=== PATIENT | female | born 1960 | race Caucasian/White ===

== ENCOUNTER → 2017-01-25 09:11 | Outpatient (CLI) | payer BC ==
[2015-12-26 15:53] VITALS: BMI 27.4
[~2017-01-25 09:11] MED LIST: ABILIFY10 MG PO; ADVAIR HFA 230-12 GM INH; AMBIEN10 MG PO; CLONAZEPAM2 MG/TAB PO; FERREX 150 PLUS1 CAP PO; HYDROCODON-ACE1 EAC7 PO; KLONOPIN1 MG PO; LEVAQUIN250 MG PO; LIPITOR20 MG PO; LITHIUM CARBON300 MG PO; MUCINEX DM ER1 EAC1 PO; NICODERM C1 PATCH .3 TRANSDERM; NORVASC2.5 MG PO; PROCRIT/EP4000 UNITS SC; PROVENTIL/2.5 MG/3 M INH; PROZAC20 MG PO; PROZAC40 MG PO; SYMBICORT 16010.2 GM INH; SYMBICORT 80-10.2 GM INH; SYNTHROID25 MCG PO; SYNTHROID75 MCG PO; TOPROL XL25 MG PO; VENTOLIN HFA18 GM INH; VITAMIN D31000 UNI2 PO
== END | disposition home or self-care (01) ==
LOC: D.RT 09:11
DX: J44.9 Chronic obstructive pulmonary disease, unspecified (principal)

== ENCOUNTER → 2017-07-27 09:44 | Outpatient (CLI) | payer BC ==
[2015-12-26 15:53] VITALS: BMI 27.4
== END | disposition home or self-care (01) ==
LOC: D.MAMMO 09:44
DX: Z12.31 Encounter for screening mammogram for malignant neoplasm of breast (principal)

== ENCOUNTER → 2017-08-29 14:55 | Outpatient (CLI) | payer BC ==
[2015-12-26 15:53] VITALS: BMI 27.4
== END | disposition home or self-care (01) ==
LOC: D.MAMMO 10:00
DX: R92.8 Other abnormal and inconclusive findings on diagnostic imaging of breast (principal)

== ENCOUNTER 2017-12-30 08:41 | Day surgery (SDC) | payer OTHER ==
[~2017-12-30] VITALS: Ht 154.9 cm; Wt 57.7 kg
--- NOTE | ~2017-12-30 | OP ---
PATIENT NAME: JAIR ECHOLS MEDICAL RECORD: [id number] :60 LOCATION:D.OPS ADMISSION DATE: SURGEON: LULU ROJO MD DATE OF OPERATION: 12/30/2017 SURGEON: Lulu Rojo MD REFERRING PHYSICIAN: Dr. London. PRIMARY CARE PHYSICIAN: Griselda Zhang MD OPERATION PERFORMED: Creation of a right brachiocephalic Maximo type AV fistula. ANESTHESIA: General per LMA as well as regional nerve block per SENIOR COMMUNICATIONS ENGINEER. PREOPERATIVE NOTE: This 57-year-old white female patient with chronic kidney disease was referred for dialysis access surgery. She is brought to the operating room at this time as an outpatient to create a fistula in her right arm. DESCRIPTION OF PROCEDURE: Under general anesthesia as well as regional nerve block, the patient was prepped and draped in a sterile manner. I used a Conception drain for a proximal venous tourniquet and applied nitroglycerin into the intact skin of the arm and forearm. I did a duplex ultrasound exam at that point and noted that she had a suitable basilic vein and also suitable median cubital and cephalic vein for fistulas. I elected to go ahead with the brachiocephalic fistula. I made a transverse antecubital incision. I exposed and mobilized the median cubital vein and ligated it distally and transected and beveled it and prepared for anastomosis. It was flushed with heparinized saline and distended with heparinized saline hydrostatically and treated with topical papaverine. The brachial artery was exposed and controlled with doubly looped Silastic tapes. The artery was occluded and opened, it was then flushed proximally and distally with heparinized saline as had been the vein and the vein was then anastomosed end to vein to side artery with running 7-0 Prolene and when completed, the suture line was hemostatic and excellent flow developed immediately in the fistula upon release of the occluding loops. There was preservation of good high resistance type pulsatile Doppler flow signal in the radial artery at the wrist as well as the brachial artery distal to the anastomosis with pulsatile continuous flow in the fistula. The wound was closed with interrupted inverted 3-0 Vicryl and then running intracuticular 4-0 Monocryl and Dermabond glue. It was dressed with Maxorb Ag, Tegaderm, and Cavilon skin prep and the patient awakened from her anesthetic and was taken to the recovery room. Blood loss was about 5 cc, perhaps at most. None was replaced. All sponges, instruments, and needles were accounted for. No drain was used. The patient will be allowed to go home this afternoon and follow up with me in my office next week. She will continue all of her same home medications and she may shower and wash over the waterproof plastic dressing as desired. If it stays dry and intact, she should leave it in place until she sees me in the office and I will remove it then. TRANSINT:[id number] Voice Confirmation ID: [id number] DOCUMENT ID: [id number] OPERATIVE REPORT [id number] JAIR ECHOLS JAMES MD at 1404 CC: MORRIS LONDON MD [id number] DICTATION DATE: 12/30/17 1431 ENERGY PROFESSIONAL: 12/30/17 1451 [facility] 12/30/[address] [address]
[2017-12-30 09:50] VITALS: BP 139/73; Ht 154.9 cm; Wt 57.7 kg
[2017-12-30 10:49] LABS: BASOPHILS 0.5 % (0-2); HEMATOCRIT 33.1 % (36.0-48.0); HEMOGLOBIN 10.9 g/dL (12-16); IMMATURE GRANULOCYTES 0.2 % (0-5); LYMPHOCYTES 18.4 % (15-50); MCH 30.4 pg (26.0-34.0); MCHC 32.9 g/dL (31.0-37.0); MCV 92.2 fL (80.0-100.0); MEAN PLATELET VOLUME 9.4 fL (7.4-10.4); MONOCYTES 6.6 % (2-11); NEUTROPHILS 70.3 % (40-80); RBC 3.59 10x6/uL (4.00-5.40); RDW 14.4 % (11.5-14.5); WBC 9.7 10x3/uL (4.8-10.8)
[2017-12-30 11:07] LABS: PLATELET COUNT 339 10x3/uL (130-400)
[2017-12-30 11:08] LABS: ANION GAP 15.3 mmol/L (8-16); CALCIUM 8.9 mg/dL (8.5-10.1); CARBON DIOXIDE 22.8 mmol/L (21.0-32.0); CREATININE - SERUM 4.5 mg/dL (0.6-1.3); POTASSIUM - SERUM 5.1 mmol/L (3.5-5.1)
[2017-12-30 11:11] LABS: INR 1.09 (0.85-1.17); PROTIME 13.7 SECONDS (11.6-15.0)
[2017-12-30] MEDS ORDERED: HYDROCODON-ACE1 EAC7 PO (14:23)
== END 2017-12-30 16:15 | disposition home or self-care (01) ==
LOC: D.OPS 08:41
PROVIDERS: Surgery
DX: I12.0 Hypertensive chronic kidney disease with stage 5 chronic kidney disease or end stage renal disease (principal); N18.5 Chronic kidney disease, stage 5; Z99.2 Dependence on renal dialysis; E03.9 Hypothyroidism, unspecified; J45.909 Unspecified asthma, uncomplicated; F17.200 Nicotine dependence, unspecified, uncomplicated; J44.9 Chronic obstructive pulmonary disease, unspecified; K21.9 Gastro-esophageal reflux disease without esophagitis; M19.90 Unspecified osteoarthritis, unspecified site; Z01.812 Encounter for preprocedural laboratory examination

== ENCOUNTER → 2018-01-13 07:15 | Outpatient (CLI) | payer OTHER ==
[2017-12-30 09:50] VITALS: BMI 24.0
== END | disposition home or self-care (01) ==
LOC: D.RT 07:15
DX: J45.901 Unspecified asthma with (acute) exacerbation (principal)

== ENCOUNTER → 2018-06-16 09:27 | Outpatient (CLI) | payer OTHER ==
[2017-12-30 09:50] VITALS: BMI 24.0
== END | disposition home or self-care (01) ==
LOC: D.RT 09:27
DX: J45.909 Unspecified asthma, uncomplicated (principal)

== ENCOUNTER → 2018-07-19 19:08 | Outpatient (CLI) | payer OTHER ==
[2017-12-30 09:50] VITALS: BMI 24.0
== END | disposition home or self-care (01) ==
LOC: D.MAMMO 10:15
DX: Z12.31 Encounter for screening mammogram for malignant neoplasm of breast (principal)

== ENCOUNTER 2018-11-26 07:47 | Inpatient (IN) | payer OTHER ==
[~2018-11-26] VITALS: Ht 154.9 cm; Wt 45.5 kg
[2018-11-26] VITALS (11 sets, daily range): BP systolic 108–131; BP diastolic 60–76; BMI 19.8
--- NOTE | ~2018-11-26 | HEMODYNAMI ---
PATIENT:JAIR ECHOLS MEDICAL RECORD: [id number] : 60 LOCATION:[facility] D.2128 ADMISSION DATE: 11/26/18 Generatedon:12/01/20189:36 Patient name: JAIR ECHOLS Patient #: [id number] SSN: : 1960 Date of study: 12/01/2018 Page: Of Hemodynamic Procedure Report Patient Data Patient Demographics Procedure consent was obtained First Name: JAIR Gender: Female Last Name: ONESIMO : 1960 [facility] Initial: JEFF Age: 58 year(s) Patient #: [id number] Race: Unknown Additional ID: [id number] Contact details Address: [address] [place] [address] State: [place] City: [facility] Zip code: [address] Past Medical History Allergies Allergen Reaction Date Comments Reported Erythromycin Other 12/01/2018 Admission Admission Data Admission Date: 11/26/2018 Admission Time: 9:21 Room #: 2128 Procedure Procedure Types Cath Procedure Peripheral Cath Diagnostic Procedure Nephro Procedure Description Procedure Date Procedure Date: 12/01/2018 Procedure Start Time: 8:50 Procedure End Time: 9:35 Procedure Staff Name Function Obinna Fernandez MD Performing Physician Marlin Walsh Monitor Gloria Fitch RN Nurse Jerrell Price RT Scrub Procedure Data Cath Procedure Fluoroscopy Diagnostic fluoroscopy Total fluoroscopy Time: 3.9 time: 3.9 min min Diagnostic fluoroscopy Total fluoroscopy dose: 53 dose: 53 mGy mGy Contrast Material Contrast Material Type Amount (ml) Isovue 300 25 Procedure Medications Medication Administration Route Dosage Heparin Flush Bag added to field 1 bags (1000units/500ml NS) Lidocaine 1% added to field 20 Versed I.V. 1 mg Fentanyl I.V. 50 mcg unlisted medication 1 Versed I.V. 1 mg Fentanyl I.V. 50 mcg Hemodynamics Rest Heart Rate: 67 (bpm) Snapshots Pre Cath Intra NCS Post Cath Vital Signs Time Heart Resp SPO2 etCO2 NIBP (mmHg) Rhythm Pain Sedation Rate (ipm) (%) (mmHg) Status Level (bpm) 8:35:45 65 5 99 33.8 140/78(122) NSR 0 (11) 10(A) , No pain 8:39:55 71 34 100 27 139/79(122) NSR 0 (11) 10(A) , No pain 8:44:05 66 18 100 35.3 133/76(117) NSR 0 (11) 10(A) , No pain 8:48:13 68 24 99 30.8 139/79(114) NSR 0 (11) 9(A) , No pain 8:52:21 63 25 99 30.8 147/81(116) NSR 0 (11) 8(A) , No pain 8:56:35 65 14 99 41.4 136/76(96) NSR 0 (11) 8(A) , No pain 9:00:44 65 24 99 33.8 131/75(111) NSR 0 (11) 8(A) , No pain 9:04:52 66 19 99 36.1 135/78(108) NSR 0 (11) 8(A) , No pain 9:09:02 67 12 99 36.9 133/74(106) NSR 0 (11) 8(A) , No pain 9:13:10 67 10 99 33.8 128/75(107) NSR 0 (11) 8(A) , No pain 9:17:18 68 14 99 30.8 136/73(101) NSR 0 (11) 8(A) , No pain 9:21:26 65 20 99 36.1 136/77(109) NSR 0 (11) 8(A) , No pain 9:25:36 66 21 99 36 126/75(106) NSR 0 (11) 8(A) , No pain 9:29:43 68 16 99 34.5 131/73(109) NSR 0 (11) 8(A) , No pain 9:33:51 69 16 99 30.8 130/76(109) NSR 0 (11) 8(A) , No pain Medications Time Medication Route Dose Verified Delivered Reason Notes Effec tiveness by by 8:47:03 Heparin Flush added 1 Obinna Yeboah used for Bag to bags Fernandez Fernandez procedure (1000units/500ml field MD FOX NS) 8:47:13 Lidocaine 1% added 20ml Obinna de la fuente local to vial Fernandez Fernandez anesthetic field MD FOX 8:48:06 CEFEPIME IVPB 1GM Obinna Castro Per Jim Fitch RN physician 8:50:37 Versed I.V. 1 mg Obinna Castro for Fernandez Constantine RN sedation 8:50:46 Fentanyl I.V. 50 Obinna Castro for mcg Fernandezsebastian Fitch RN sedation 8:59:52 Versed I.V. 1 mg Obinna Castro for Fernandez Constantine RN sedation 9:00:02 Fentanyl I.V. 50 Obinna Castro for mcg Fernandezsebastian Fitch RN sedation Procedure Log Time Note 8:20:19 Gloria Fitch RN sent for patient. Start room use. 8:20:26 Time tracking: Regular hours (M-F 7:00 - 5:00) 8:20:37 Plan of Care:Hemodynamics will remain stable., Cardiac rhythm will remain stable., Comfort level will be maintained., Respiratory function will remain adequate., Patient/ family verbilizes understanding of procedure., Procedure tolerated without complication., Recovers from procedure without complications.. 8:20:56 Patient received from Med II to IR Alert and oriented. Tansferred to table in Prone position. 8:20:58 Warm blankets applied on for patient comfort. 8:21:28 Correct patient and procedure confirmed by team. 8:21:32 Signed procedure consent form obtained from patient. 8:21:36 ECG and BP/O2 sat monitors applied to patient. 8:21:43 Full Disclosure recording started 8:21:45 8:22:12 H&P Date Dictated: 12/01/2018 Within 30 days and on chart.. 8:22:16 Pre-procedure instructions explained to patient. 8:22:21 Pre-op teaching completed and patient verbalized understanding. 8:22:28 Family in waiting room. 8:22:32 Patient NPO since Midnight. 8:23:02 Patient allergic to Erythromycin 8:24:26 ----Pre-sedation anethsthesia assessment.---- 8:24:31 Previous problem with sedation/anesthesia? No ? 8:24:35 Snore? Yes 8:24:38 Sleep apnea? No 8:24:42 Deviated septum? No 8:24:45 Opens mouth fully? Yes 8:24:48 Sticks out tongue? Yes 8:25:00 Dentures? Yes in tight. 8:26:13 IV started by Gloria Fitch RN inleft forearm with a 22 gauge IV catheter with 0.9% NaCl at KVO. 8:26:36 Alarms reviewed . 8:26:37 Sharps counted by scrub and verified . 8:27:28 Use device set IR Diagnostic 8:27:34 Tegaderm 4 x 4 (1626W) opened to sterile field. 8:27:35 Sterile Angiographic Pack opened to sterile field. 8:27:36 Bag Decanter (2002S) opened to sterile field. 8:28:33 Right Lumbar was prepped with chlora-prep and draped in sterile fashion. 8:29:48 KIT, INTRODUCER ACCUSTICK II W/C ([id number]) opened to sterile field. 8:29:[address] ST[address] 3-Way Large Bore ([id number]) opened to sterile field. 8:34:35 Vital chart was started 8:34:54 Baseline sample Acquired. 8:46:12 BAG, DRAINAGE EMPTY 600ML W/SHARIF ([id number]) opened to sterile field. 8:47:03 Heparin Flush Bag (1000units/500ml NS) 1 bags added to field was administered by Obinna Fernandez MD; used for procedure; 8:47:13 Lidocaine 1% 20ml vial added to field was administered by Obinna Fernandez MD; for local anesthetic; 8:47:27 Physician arrived 8:47:29 --------ALL STOP TIME OUT------ 8:47:31 Final Timeout: patient, procedure, and site verified with staff and physician. All members of the team are in agreement. 8:47:43 Right abdomen site verified by team. 8:47:56 Sedation plan: IV Moderate Sedation Medication:Versed, Fentanyl, Lidocaine 8:48:06 CEFEPIME 1GM IVPB was administered by Gloria Fitch RN; Per physician; 8:48:21 Procedure started. 8:50:23 Local anesthetic to Abdominal area with Lidocaine 1% by Obinna Fernandez MD.INITIAL ACCESS ONLY 8:50:37 Versed 1 mg I.V. was administered by Gloria Fitch RN; for sedation; 8:50:46 Fentanyl 50 mcg I.V. was administered by Gloria Fitch RN; for sedation; 8:51:08 1mg cephine given by Gloria Fitch RN. 8:59:52 Versed 1 mg I.V. was administered by Gloria Fitch RN; for sedation; 9:00:02 Fentanyl 50 mcg I.V. was administered by Gloria Fitch RN; for sedation; 9:08:07 Access obtained with the accustick system. 9:10:06 ROADRUNNER .035 145 glide wire (D16337) opened to sterile field. 9:14:50 GLIDE CATHETER 4FR Straight 65cm (CG412) opened to sterile field. 9:14:51 AMPLATZ Super stiff 180cm wire ([id number]) opened to sterile field. 9:17:56 The roadrunner wire is used to wire the right ureter into the bladder. 9:18:37 The 4 fr guide cath is used to manuver into the bladder. 9:19:14 PEEL-A-WAY INTRODUCER 11Fr opened to sterile field. 9:19:41 DILATOR, VESSEL 8/20 opened to sterile field. 9:21:12 [place] Sci All Purpose 10Fr drainage catheter ([id number]) opened to sterile field. 9:22:19 the all purpose 10 Fr drainage catheter is positioned in the right kidney. 9:22:48 Procedure ended.(Physican Out) 9:26:18 Fluoroscopy time 03.90 minutes. 9:26:33 Flurop Dose total: 53 9:26:33 Fluoroscopy dose: 53 mGy 9:26:40 Contrast amount:Isovue 300 25ml. 9:26:43 Sharps counted by scrub and verified . 9:29:57 Post-op/insertion site Right Lumbar area dressed using a 4 x 4 and Tegaderm. 9:30:03 Post procedure instruction explained to patient.Patient verbalizes understanding. 9:30:05 Patient needs reinforcement of post procedure teaching. 9:30:13 Procedure and supply charges have been captured, reviewed, submitted and are correct. 9:35:20 See physician's report for complete and final results. 9:35:25 Report given to [facility]. 9:35:33 Patient transfered to [facility] with Bed. 9:35:39 Procedure ended. 9:35:39 Full Disclosure recording stopped 9:36:14 Vital chart was stopped Device Usage Item Name Manufacture Quantity Catalog Hospital Part Current Minimal Lot# / Number Charge Number Stock Stock Serial# Code Tegaderm 4 x 3M 1 1626W [id number] [id number] 5 4 (1626W) Sterile Cardinal 1 [id number] 422214 544064 5 Angiographic Health Pack Bag Decanter Microtek 1 2001S 534514 38356 303265 5 (2001S) Medical Inc[employer] KIT, [place] 1 [id number] 672231 364675 433855 5 [id number] INTRODUCER Scientific ACCUSTICK II W/C ([id number]) STOPCOCK [employer] [place] [employer] 1 X09211 805277 4429 739634 [id number] 3-Way Large Bore (Q81457) BAG, Merit 1 GMD554 076867 294411 835637 5 DRAINAGE Medical EMPTY 600ML W/SHARIF (SJN131) ROADRUNNER [place] [facility] 1 R88706 481109 547295 095494 5 [id number] .035 145 glide wire (J83374) GLIDE Terumo 1 CG412 257856 472879 5 CATHETER 4FR Straight 65cm (CG412) AMPLATZ [place] 1 [id number] 650477 894372 781139 5 [id number] Super stiff Scientific 180cm wire ([id number]) PEEL-A-WAY [employer] 1 F45690 150310 087294 362895 5 [id number] INTRODUCER 11Fr DILATOR, [employer] 1 C32708 570856 80955 624153 5 VESSEL 8/20 [place] [employer] [place] 1 [id number] 242642 027310 193134 5 All Purpose Scientific 10Fr drainage catheter ([id number]) Signature Audit [place] Stage Time Signature Unsigned Intra-Procedure 12/01/2018 Marlin 9:36:11 AM Nico Signatures Monitor : Marlin Signature : Nico Date : Time : [address] [place] [address]
[2018-11-26 08:20] LABS: BASOPHILS 0.1 % (0-2); EOSINOPHILS 1.5 % (0-7); HEMATOCRIT 29.7 % (36.0-48.0); HEMOGLOBIN 10.1 g/dL (12-16); IMMATURE GRANULOCYTES 0.2 % (0-5); LYMPHOCYTES 3.5 % (15-50); MCH 31.3 pg (26.0-34.0); MEAN PLATELET VOLUME 9.9 fL (7.4-10.4); MONOCYTES 8.3 % (2-11); NEUTROPHILS 86.4 % (40-80); RBC 3.23 10x6/uL (4.00-5.40); RDW 13.3 % (11.5-14.5); WBC 15.5 10x3/uL (4.8-10.8)
[2018-11-26 08:29] LABS: PLATELET COUNT 184 10x3/uL (130-400)
[2018-11-26 08:43] LABS: ALBUMIN 2.9 g/dL (3.4-5.0); ANION GAP 16.8 mmol/L (8-16); BILIRUBIN - TOTAL 0.3 mg/dL (0.2-1.3); CALCIUM 8.1 mg/dL (8.5-10.1); CARBON DIOXIDE 20.1 mmol/L (21.0-32.0); CREATININE - SERUM 5.4 mg/dL (0.6-1.3); POTASSIUM - SERUM 3.9 mmol/L (3.5-5.1); PROTEIN - SERUM 6.3 g/dL (6.4-8.2)
[2018-11-26 08:49] LABS: THYROID STIMULATING HORMONE 1.55 uIU/mL (0.36-3.74)
[2018-11-26 08:51] LABS: APPEARANCE CLEAR (CLEAR); BILIRUBIN NEGATIVE (NEGATIVE); COLOR YELLOW (YELLOW); GLUCOSE NEGATIVE (NEGATIVE); KETONE NEGATIVE (NEGATIVE); NITRITE NEGATIVE (NEGATIVE); PROTEIN NEGATIVE (NEGATIVE); SPECIFIC GRAVITY 1.005 (1.005-1.020); UROBILINOGEN NORMAL (NORMAL)
[2018-11-26 08:52] LABS: WHITE CELLS - URINE 0-5 /hpf (0-5)
[2018-11-26 08:53] LABS: EPITHELIAL CELLS 0-5 /hpf (0-5); RED CELLS - URINE 0-5 /hpf (0-5)
[2018-11-26 08:54] LABS: AMORPHOUS SEDIMENT <1+ /lpf (NONE SEEN); BACTERIA MANY /hpf (NONE SEEN); MUCUS <1+ /lpf (NONE SEEN)
[2018-11-26 12:01] LABS: UDS - AMPHET NEGATIVE QUAL (NEGATIVE); UDS - BARB NEGATIVE QUAL (NEGATIVE); UDS - BENZO NEGATIVE QUAL (NEGATIVE); UDS - COCAINE NEGATIVE QUAL (NEGATIVE); UDS - OPIATE NEGATIVE QUAL (NEGATIVE); UDS - PCP NEGATIVE QUAL (NEGATIVE); UDS - THC POSITIVE QUAL (NEGATIVE)
[2018-11-27] VITALS (7 sets, daily range): BP systolic 124–138; BP diastolic 64–77; BMI 19.6
[2018-11-27 06:28] LABS: BASOPHILS 0.2 % (0-2); EOSINOPHILS 1.7 % (0-7); HEMATOCRIT 29.3 % (36.0-48.0); HEMOGLOBIN 9.9 g/dL (12-16); IMMATURE GRANULOCYTES 0.2 % (0-5); LYMPHOCYTES 4.8 % (15-50); MCH 31.4 pg (26.0-34.0); MCHC 33.8 g/dL (31.0-37.0); MEAN PLATELET VOLUME 10.2 fL (7.4-10.4); NEUTROPHILS 85.1 % (40-80); PLATELET COUNT 190 10x3/uL (130-400); RBC 3.15 10x6/uL (4.00-5.40); RDW 13.3 % (11.5-14.5); WBC 12.6 10x3/uL (4.8-10.8)
[2018-11-27 06:51] LABS: ALBUMIN 2.4 g/dL (3.4-5.0); ANION GAP 11.8 mmol/L (8-16); BILIRUBIN - TOTAL 0.25 mg/dL (0.2-1.3); CALCIUM 7.7 mg/dL (8.5-10.1); CREATININE - SERUM 4.9 mg/dL (0.6-1.3); MAGNESIUM - SERUM 1.8 mg/dL (1.8-2.4); POTASSIUM - SERUM 3.6 mmol/L (3.5-5.1); PROTEIN - SERUM 5.7 g/dL (6.4-8.2)
[2018-11-27 06:54] LABS: CARBON DIOXIDE 26.8 mmol/L (21.0-32.0)
[2018-11-28 03:55] VITALS: BP 119/67
[2018-11-28 05:43] LABS: BASOPHILS 0.2 % (0-2); EOSINOPHILS 1.2 % (0-7); HEMATOCRIT 30.5 % (36.0-48.0); IMMATURE GRANULOCYTES 0.2 % (0-5); MCH 30.8 pg (26.0-34.0); MCHC 32.8 g/dL (31.0-37.0); MCV 93.8 fL (80.0-100.0); MEAN PLATELET VOLUME 10.3 fL (7.4-10.4); NEUTROPHILS 81.4 % (40-80); PLATELET COUNT 205 10x3/uL (130-400); RBC 3.25 10x6/uL (4.00-5.40); RDW 13.2 % (11.5-14.5); WBC 10.9 10x3/uL (4.8-10.8)
[2018-11-28 06:08] LABS: ALBUMIN 2.5 g/dL (3.4-5.0); ANION GAP 10.7 mmol/L (8-16); BILIRUBIN - TOTAL 0.33 mg/dL (0.2-1.3); CALCIUM 7.8 mg/dL (8.5-10.1); CARBON DIOXIDE 30.9 mmol/L (21.0-32.0); CREATININE - SERUM 4.7 mg/dL (0.6-1.3); MAGNESIUM - SERUM 1.7 mg/dL (1.8-2.4); POTASSIUM - SERUM 3.6 mmol/L (3.5-5.1); PROTEIN - SERUM 6.2 g/dL (6.4-8.2)
[2018-11-28 08:39] VITALS: BP 127/84
[2018-11-28 09:36] LABS: % SATURATION 8 % (15-55); IRON 13 ug/dl (35-150); TOTAL IRON BIND CAPACITY 147 ug/dl (260-445); UNSAT IRON BIND CAPACITY 134 ug/dl (150-375)
[2018-11-28 12:22] VITALS: BP 130/73
[2018-11-28 17:04] VITALS: BP 140/70
[2018-11-28 19:00] VITALS: BP 113/62
[2018-11-29] VITALS: BP 135/75
[2018-11-29 04:00] VITALS: BP 105/51
[2018-11-29 04:40] LABS: BASOPHILS 0.5 % (0-2); EOSINOPHILS 1.6 % (0-7); HEMOGLOBIN 8.5 g/dL (12-16); IMMATURE GRANULOCYTES 0.1 % (0-5); MCH 30.7 pg (26.0-34.0); MCHC 32.7 g/dL (31.0-37.0); MCV 93.9 fL (80.0-100.0); MEAN PLATELET VOLUME 10.2 fL (7.4-10.4); MONOCYTES 9.9 % (2-11); NEUTROPHILS 79.9 % (40-80); PLATELET COUNT 180 10x3/uL (130-400); RBC 2.77 10x6/uL (4.00-5.40); RDW 13.1 % (11.5-14.5); WBC 8.2 10x3/uL (4.8-10.8)
[2018-11-29 04:54] LABS: ANION GAP 16.8 mmol/L (8-16); BILIRUBIN - TOTAL 0.26 mg/dL (0.2-1.3); CARBON DIOXIDE 26.3 mmol/L (21.0-32.0); CREATININE - SERUM 4.1 mg/dL (0.6-1.3); MAGNESIUM - SERUM 2.3 mg/dL (1.8-2.4); POTASSIUM - SERUM 4.1 mmol/L (3.5-5.1); PROTEIN - SERUM 5.3 g/dL (6.4-8.2)
[2018-11-29 08:08] VITALS: BP 130/73
[2018-11-29 08:22] LABS: FOLATE (FOLIC ACID) - SERUM 4.1 ng/mL (>3.0)
[2018-11-29 11:08] VITALS: BP 116/73
[2018-11-29 15:37] VITALS: BP 138/76
[2018-11-29 21:09] VITALS: BP 152/88
[2018-11-30] VITALS: BP 143/76
[2018-11-30 04:00] VITALS: BP 153/88
[2018-11-30 05:31] LABS: BASOPHILS 0.2 % (0-2); EOSINOPHILS 2.4 % (0-7); HEMATOCRIT 27.3 % (36.0-48.0); IMMATURE GRANULOCYTES 0.3 % (0-5); MCH 30.7 pg (26.0-34.0); MCV 93.2 fL (80.0-100.0); MEAN PLATELET VOLUME 10.2 fL (7.4-10.4); MONOCYTES 8.8 % (2-11); NEUTROPHILS 82.3 % (40-80); RBC 2.93 10x6/uL (4.00-5.40); RDW 13.1 % (11.5-14.5)
[2018-11-30 05:34] LABS: PLATELET COUNT 246 10x3/uL (130-400); WBC 10.3 10x3/uL (4.8-10.8)
[2018-11-30 05:50] LABS: ALBUMIN 2.2 g/dL (3.4-5.0); ANION GAP 16.3 mmol/L (8-16); BILIRUBIN - TOTAL 0.23 mg/dL (0.2-1.3); CALCIUM 7.8 mg/dL (8.5-10.1); CARBON DIOXIDE 26.6 mmol/L (21.0-32.0); CREATININE - SERUM 4.4 mg/dL (0.6-1.3); MAGNESIUM - SERUM 2.1 mg/dL (1.8-2.4); POTASSIUM - SERUM 3.9 mmol/L (3.5-5.1); PROTEIN - SERUM 5.8 g/dL (6.4-8.2)
[2018-11-30 07:49] VITALS: BP 135/77
[2018-11-30 11:00] VITALS: BP 126/68
[2018-11-30 15:25] VITALS: Ht 154.9 cm; Wt 45.5 kg
[2018-11-30 17:02] VITALS: BP 134/70
[2018-11-30 20:00] VITALS: BP 134/74
[2018-12-01] VITALS (7 sets, daily range): BP systolic 111–151; BP diastolic 64–82
[2018-12-01 06:18] LABS: INR 1.24 (0.85-1.17); PROTIME 15.1 SECONDS (11.6-15.0)
[2018-12-01 06:19] LABS: APTT 43.1 SECONDS (22.8-39.4); BASOPHILS 0.5 % (0-2); EOSINOPHILS 4.3 % (0-7); HEMATOCRIT 28.2 % (36.0-48.0); HEMOGLOBIN 9.3 g/dL (12-16); IMMATURE GRANULOCYTES 0.3 % (0-5); LYMPHOCYTES 7.7 % (15-50); MCH 30.9 pg (26.0-34.0); MCV 93.7 fL (80.0-100.0); MEAN PLATELET VOLUME 10.1 fL (7.4-10.4); MONOCYTES 7.7 % (2-11); NEUTROPHILS 79.5 % (40-80); PLATELET COUNT 282 10x3/uL (130-400); RBC 3.01 10x6/uL (4.00-5.40); RDW 13.3 % (11.5-14.5); WBC 10.9 10x3/uL (4.8-10.8)
[2018-12-01 06:28] LABS: ALBUMIN 2.3 g/dL (3.4-5.0); ANION GAP 13.6 mmol/L (8-16); BILIRUBIN - TOTAL 0.25 mg/dL (0.2-1.3); CARBON DIOXIDE 26.6 mmol/L (21.0-32.0); CREATININE - SERUM 4.4 mg/dL (0.6-1.3); MAGNESIUM - SERUM 2.3 mg/dL (1.8-2.4); POTASSIUM - SERUM 4.2 mmol/L (3.5-5.1)
[2018-12-02 03:55] VITALS: BP 140/76
[2018-12-02 05:24] LABS: BASOPHILS 0.3 % (0-2); EOSINOPHILS 3.6 % (0-7); HEMATOCRIT 30.4 % (36.0-48.0); IMMATURE GRANULOCYTES 0.2 % (0-5); MCHC 32.9 g/dL (31.0-37.0); MCV 94.1 fL (80.0-100.0); MEAN PLATELET VOLUME 9.7 fL (7.4-10.4); MONOCYTES 8.7 % (2-11); NEUTROPHILS 79.2 % (40-80); PLATELET COUNT 293 10x3/uL (130-400); RBC 3.23 10x6/uL (4.00-5.40); RDW 13.1 % (11.5-14.5); WBC 10.1 10x3/uL (4.8-10.8)
[2018-12-02 05:44] LABS: ANION GAP 13.4 mmol/L (8-16); CALCIUM 8.6 mg/dL (8.5-10.1); CARBON DIOXIDE 28.1 mmol/L (21.0-32.0); CREATININE - SERUM 4.6 mg/dL (0.6-1.3); PHOSPHOROUS 3.7 mg/dL (2.5-4.9); POTASSIUM - SERUM 4.5 mmol/L (3.5-5.1)
[2018-12-02 10:41] VITALS: BP 139/80
[2018-12-02 14:29] VITALS: BP 135/82
[2018-12-02 17:11] VITALS: BP 118/67
[2018-12-02 20:30] VITALS: BP 138/81
[2018-12-03 04:30] VITALS: BP 121/72
[2018-12-03 06:58] LABS: BASOPHILS 0.2 % (0-2); EOSINOPHILS 3.1 % (0-7); HEMOGLOBIN 8.6 g/dL (12-16); IMMATURE GRANULOCYTES 0.4 % (0-5); LYMPHOCYTES 10.4 % (15-50); MCH 31.2 pg (26.0-34.0); MCHC 33.1 g/dL (31.0-37.0); MCV 94.2 fL (80.0-100.0); MEAN PLATELET VOLUME 9.6 fL (7.4-10.4); MONOCYTES 6.2 % (2-11); NEUTROPHILS 79.7 % (40-80); PLATELET COUNT 281 10x3/uL (130-400); RBC 2.76 10x6/uL (4.00-5.40); RDW 13.1 % (11.5-14.5); WBC 8.4 10x3/uL (4.8-10.8)
[2018-12-03 07:00] LABS: ANION GAP 15.1 mmol/L (8-16); CARBON DIOXIDE 24.5 mmol/L (21.0-32.0); CREATININE - SERUM 4.3 mg/dL (0.6-1.3); PHOSPHOROUS 3.4 mg/dL (2.5-4.9)
[2018-12-03 07:03] LABS: POTASSIUM - SERUM 3.6 mmol/L (3.5-5.1)
[2018-12-03 09:18] VITALS: BP 147/84
[2018-12-03 14:21] VITALS: BP 134/79
[2018-12-03 20:30] VITALS: BP 140/85
[2018-12-03 23:22] LABS: APPEARANCE CLEAR (CLEAR); BILIRUBIN NEGATIVE (NEGATIVE); COLOR YELLOW (YELLOW); GLUCOSE NEGATIVE (NEGATIVE); KETONE NEGATIVE (NEGATIVE); NITRITE NEGATIVE (NEGATIVE); PROTEIN NEGATIVE (NEGATIVE); UROBILINOGEN NORMAL (NORMAL)
[2018-12-03 23:23] LABS: BACTERIA FEW /hpf (NONE SEEN); EPITHELIAL CELLS RARE /hpf (0-5); RED CELLS - URINE 0-5 /hpf (0-5)
[2018-12-04 04:30] VITALS: BP 165/93
[2018-12-04 05:37] LABS: BASOPHILS 0.2 % (0-2); EOSINOPHILS 2.6 % (0-7); HEMATOCRIT 26.7 % (36.0-48.0); HEMOGLOBIN 8.7 g/dL (12-16); IMMATURE GRANULOCYTES 0.3 % (0-5); LYMPHOCYTES 6.9 % (15-50); MCH 30.7 pg (26.0-34.0); MCHC 32.6 g/dL (31.0-37.0); MCV 94.3 fL (80.0-100.0); MEAN PLATELET VOLUME 9.7 fL (7.4-10.4); MONOCYTES 4.8 % (2-11); NEUTROPHILS 85.2 % (40-80); PLATELET COUNT 337 10x3/uL (130-400); RBC 2.83 10x6/uL (4.00-5.40); RDW 13.4 % (11.5-14.5); WBC 10.2 10x3/uL (4.8-10.8)
[2018-12-04 06:21] LABS: ANION GAP 14.4 mmol/L (8-16); CARBON DIOXIDE 24.8 mmol/L (21.0-32.0); CREATININE - SERUM 4.2 mg/dL (0.6-1.3); PHOSPHOROUS 3.3 mg/dL (2.5-4.9)
[2018-12-04 06:26] LABS: POTASSIUM - SERUM 4.2 mmol/L (3.5-5.1)
[2018-12-04 10:14] VITALS: BP 136/82
[2018-12-04 19:55] VITALS: BP 146/86
[2018-12-05 00:11] VITALS: BP 145/85
[2018-12-05 03:50] VITALS: BP 151/86
[2018-12-05 06:45] LABS: ANION GAP 13.1 mmol/L (8-16); CREATININE - SERUM 4.1 mg/dL (0.6-1.3); PHOSPHOROUS 3.5 mg/dL (2.5-4.9); POTASSIUM - SERUM 4.1 mmol/L (3.5-5.1)
[2018-12-05 07:02] LABS: BASOPHILS 0.3 % (0-2); EOSINOPHILS 2.7 % (0-7); HEMATOCRIT 25.2 % (36.0-48.0); HEMOGLOBIN 8.3 g/dL (12-16); IMMATURE GRANULOCYTES 0.3 % (0-5); LYMPHOCYTES 11.8 % (15-50); MCH 30.7 pg (26.0-34.0); MCHC 32.9 g/dL (31.0-37.0); MCV 93.3 fL (80.0-100.0); MEAN PLATELET VOLUME 9.8 fL (7.4-10.4); MONOCYTES 5.5 % (2-11); NEUTROPHILS 79.4 % (40-80); PLATELET COUNT 332 10x3/uL (130-400); RDW 13.7 % (11.5-14.5)
[2018-12-05 09:47] VITALS: BP 145/84
[2018-12-05] MEDS ORDERED: FLAGYL500 MG PO (12:54)
--- NOTE | 2018-12-05 14:27 | MORECARE ---
CASE MANAGEMENT DISCHARGE SUMMARY PATIENT: JAIR ECHOLS UNIT: [id number] ADM DATE: 11/26/18 AGE: 58 : 60 SEX: F ROOM/BED: D.0175 AUTHOR: ALVA,DOC PHYSICIAN: REFERRING PHYSICIAN: DOLORES VIDAL MD DATE OF SERVICE: 12/05/18 Discharge Plan Patient Name: JAIR ECHOLS Facility: [facility]:[place] : 1960 Planned Disposition: Home Anticipated Discharge Date: 12/05/18 Discharge Date: Expected LOS: 9 Initial Reviewer: [email or web address] Initial Review Date: 12/05/2018 Generated: 12/05/18 3:27 pm DCPIA - Discharge Planning Initial Assessment Updated by SHOBHA: Ahsan Mccauley on 12/05/18 2:25 pm * Is the patient Alert and Oriented? Yes * How many steps to enter\exit or inside your home? NONE * PCP DR. VIDAL * Pharmacy [facility] * Preadmission Environment Home with Family * ADLs Independent * Equipment Nebulizer * Other Equipment [facility] - MEDICAL EQUIPMENT PROVIDER PREFERENCE * List name and contact numbers for known caregivers / representatives who currently or will assist patient after discharge: TASHA ASENCIO, * Verbal permission to speak to the caregivers and representatives has been obtained from the patient. Yes * Community resources currently utilized None * Please name any agencies selected above. NONE * Additional services required to return to the preadmission environment? No * Can the patient safely return to the preadmission environment? Yes * Has this patient been hospitalized within the prior 30 days at any hospital? No Coverage Notice Reviewer: [email or web address] Mccauley Notice Issued Date-Time: 12/05/2018 13:25 Notice Type: IM Discharge Notice Notice Delivered To: Patient Relationship to Patient: Typing Secretary Name: Delivery Method: HAND - Hand Delivered Criselda Days: Prior Verbal Notification: Recipient Understood Notice: Yes Recipient Signature: Yes Med Rec Note Co-signed by Attending: Coverage Notice Comment: Reviewer: SHOBHA Mccauley Notice Issued Date-Time: 12/05/2018 13:25 Notice Type: Patient Choice Letter Notice Delivered To: Patient Relationship to Patient: Typing Secretary Name: Delivery Method: HAND - Hand Delivered Criselda Days: Prior Verbal Notification: Recipient Understood Notice: Yes Recipient Signature: Yes Med Rec Note Co-signed by Attending: Coverage Notice Comment: [facility] Patient Name: JAIR ECHOLS Page [id number] at 1427 All edits/amendments must be made on the electronic document DICTATION DATE: 12/05/181426 SNOUT PULLER: ERNIE 12/05/181426 RPT#: [id number] DC DATE: STATUS: ADM IN [facility] [address] [place] [address] END OF REPORT
--- NOTE | 2018-12-05 14:34 | MORECARE ---
CASE MANAGEMENT DISCHARGE SUMMARY PATIENT: JAIR ECHOLS UNIT: [id number] ADM DATE: 11/26/18 AGE: 58 : 60 SEX: F ROOM/BED: D.1045 AUTHOR: ALVA,DOC PHYSICIAN: REFERRING PHYSICIAN: DOLORES VIDAL MD DATE OF SERVICE: 12/05/18 Discharge Plan Patient Name: JAIR ECHOLS Facility: [facility]:[place] : 1960 Planned Disposition: Home Anticipated Discharge Date: 12/05/18 Discharge Date: Expected LOS: 9 Initial Reviewer: [email or web address] Initial Review Date: 12/05/2018 Generated: 12/05/18 3:34 pm Comments DCP- Discharge Planning Updated by [id number]: Ahsan Mccauley on 12/05/18 1:[address] Patient Name: JAIR ECHOLS Admission Status: ER Accout number: [id number] Admission Date: 11-26-2018 : 1960 Admission Diagnosis:ALTERED MENTAL STATUS, UNSPECIFIED Attending: DOLORES VIDAL Current LOS: 9 Anticipated DC Date: 12-05-2018 Planned Disposition: Home Primary Insurance: [employer]OV[employer] [place] Discharge Planning Comments: CM MET WITH PT IN ROOM TO DISCUSS DISCHARGE PLANNING AND NEEDS. PT REPORTS LIVING AT HOME INDEPENDENTLY WITH SPOUSE. PT HAS NEBULIZER FROM [facility]. PT HAS NO OUTSIDE SERVICES ASSISTING IN THE HOME. CM DISCUSSED AVAILABILITY OF HOME HEALTH, REHAB SERVICES AND MEDICAL EQUIPMENT. PT'S SPOUSE ASKED ABOUT HOME CARE FOR PT WHILE HE IS AT WORK. THEY HAVE NEVER APPLIED FOR MEDICAID AND DO NOT HAVE MEDICAID SERVICES. CM OFFERED PERSONAL CARE LISTING FOR PRIVATE PAY CAREGIVING, PT AND SPOUSE REFUSED. CM EXPLAINED THAT MEDICARE WOULD PAY FOR HOME HEALTH AND DESCRIBED HOME HEALTH SERVICES. PT INITIALLY STATES SHE WOULD ACCEPT HOME HEALTH BUT IS INDEPENDENT AT HOME WITH ALL THAT HOME HEALTH WOULD OFFER. CHOICE SIGNED FOR [facility] IF IT IS NEEDED. PT'S SPOUSE REPORTS THAT HE WILL HAVE PT'S MOTHER IN LAW STAY WITH PT DURING THE DAY WHILE PT'S SPOUSE IS AT WORK. CM REVIEWED CHART, EXPLAINED THAT ALEX LOPEZ WAS ORDERED TO FOLLOW UP WITH PT AT HOME. PT DENIES NEED FOR HOME HEALTH OR OTHER DISCHARGE NEEDS, PT'S SPOUSE WILL PICK HER UP FOR DISCHARGE HOME. IMPORTANT MESSAGE FROM MEDICARE PROVIDED AND EXPLAINED. Supervisor Transferring And Boxing: Ahsan Mccauley DCPIA - Discharge Planning Initial Assessment Updated by [id number]: Ahsan Mccauley on 12/05/18 2:25 pm * Is the patient Alert and Oriented? Yes * How many steps to enter\exit or inside your home? NONE * PCP DR. VIDAL * Pharmacy [facility] * Preadmission Environment Home with Family * ADLs Independent * Equipment Nebulizer * Other Equipment [employer] - MEDICAL EQUIPMENT PROVIDER PREFERENCE * List name and contact numbers for known caregivers / representatives who currently or will assist patient after discharge: TASHA ASENCIO, * Verbal permission to speak to the caregivers and representatives has been obtained from the patient. Yes * Community resources currently utilized None * Please name any agencies selected above. NONE * Additional services required to return to the preadmission environment? No * Can the patient safely return to the preadmission environment? Yes * Has this patient been hospitalized within the prior 30 days at any hospital? No Coverage Notice Reviewer: [email or web address] Mccauley Notice Issued Date-Time: 12/05/2018 13:25 Notice Type: IM Discharge Notice Notice Delivered To: Patient Relationship to Patient: Top Inventory Control Executive Name: Delivery Method: HAND - Hand Delivered Criselda Days: Prior Verbal Notification: Recipient Understood Notice: Yes Recipient Signature: Yes Med Rec Note Co-signed by Attending: Coverage Notice Comment: Reviewer: [id number] Mccauley Notice Issued Date-Time: 12/05/2018 13:25 Notice Type: Patient Choice Letter Notice Delivered To: Patient Relationship to Patient: Top Inventory Control Executive Name: Delivery Method: HAND - Hand Delivered Criselda Days: Prior Verbal Notification: Recipient Understood Notice: Yes Recipient Signature: Yes Med Rec Note Co-signed by Attending: Coverage Notice Comment: [facility] Last DP export: 12/05/18 1:27 p Patient Name: JAIR ECHOLS Page [phone] at 1434 All edits/amendments must be made on the electronic document DICTATION DATE: 12/05/181432 CARD SERVICES SPECIALIST: ERNIE 12/05/181432 RPT#: [id number] DC DATE: STATUS: ADM IN [facility] [address] [place] [address] END OF REPORT
== END 2018-12-05 17:06 | disposition home or self-care (01) | DRG 682 ==
LOC: D.ER 07:47 → D.EDHOLD 09:21 → D.M2 09:21
PROVIDERS: Emergency Medicine; Internal Medicine Nephrology; Specialist; ADMIT Family Medicine
PROC: 0T9030Z Drainage of Right Kidney with Drainage Device, Percutaneous Approach (ICD-10-PCS; principal; 2018-12-01 08:45)
DX: N17.9 Acute kidney failure, unspecified (principal); G93.41 Metabolic encephalopathy; E87.2 Acidosis; N39.0 Urinary tract infection, site not specified; I12.0 Hypertensive chronic kidney disease with stage 5 chronic kidney disease or end stage renal disease; A04.72 Enterocolitis due to Clostridium difficile, not specified as recurrent; E86.0 Dehydration; D63.1 Anemia in chronic kidney disease; E03.9 Hypothyroidism, unspecified; J44.9 Chronic obstructive pulmonary disease, unspecified; N18.5 Chronic kidney disease, stage 5; D50.9 Iron deficiency anemia, unspecified; N13.6 Pyonephrosis; Z86.73 Personal history of transient ischemic attack (TIA), and cerebral infarction without residual deficits

== ENCOUNTER 2019-01-05 16:36 | Emergency (ER) | payer OTHER ==
[~2019-01-05] VITALS: Ht 154.9 cm; Wt 47.3 kg
[~2019-01-05 16:36] MED LIST changes: +FLAGYL500 MG PO
[2019-01-05 16:42] VITALS: Ht 154.9 cm; Wt 47.3 kg
[2019-01-05 20:01] VITALS: BP 120/71
== END 2019-01-05 20:01 | disposition home or self-care (01) ==
LOC: D.ER 16:36
DX: T83.84XA Pain due to genitourinary prosthetic devices, implants and grafts, initial encounter (principal); J44.9 Chronic obstructive pulmonary disease, unspecified

== ENCOUNTER 2019-01-16 05:43 | Inpatient (IN) | payer OTHER ==
[2019-01-15 10:33] LABS: BASOPHILS 0.9 % (0-2); EOSINOPHILS 7.4 % (0-7); HEMATOCRIT 35.4 % (36.0-48.0); HEMOGLOBIN 11.7 g/dL (12-16); IMMATURE GRANULOCYTES 0.1 % (0-5); LYMPHOCYTES 19.2 % (15-50); MCH 31.2 pg (26.0-34.0); MCHC 33.1 g/dL (31.0-37.0); MCV 94.4 fL (80.0-100.0); MONOCYTES 6.8 % (2-11); NEUTROPHILS 65.6 % (40-80); RBC 3.75 10x6/uL (4.00-5.40); RDW 14.3 % (11.5-14.5); WBC 7.8 10x3/uL (4.8-10.8)
[2019-01-15 10:40] LABS: ANION GAP 16.4 mmol/L (8-16); CALCIUM 8.5 mg/dL (8.5-10.1); CARBON DIOXIDE 22.5 mmol/L (21.0-32.0); CREATININE - SERUM 3.8 mg/dL (0.6-1.3); POTASSIUM - SERUM 4.9 mmol/L (3.5-5.1)
[2019-01-15 10:44] LABS: PLATELET COUNT 221 10x3/uL (130-400)
[2019-01-15 10:54] LABS: INR 1.1 (0.85-1.17); PROTIME 13.7 SECONDS (11.6-15.0)
[~2019-01-16] VITALS: Ht 154.9 cm; Wt 43.6 kg
[2019-01-16] VITALS (11 sets, daily range): BP systolic 97–146; BP diastolic 58–74; Ht 154.9 cm; Wt 43.6 kg
--- NOTE | ~2019-01-16 | HEMODYNAMI ---
PATIENT:JAIR ECHOLS MEDICAL RECORD: [id number] : 60 LOCATION:[facility] ADMISSION DATE: 01/16/19 Generatedon:01/16/20199:01 Patient name: JAIR ECHOLS Patient #: [id number] SSN: : 1960 Date of study: 01/16/2019 Page: Of Hemodynamic Procedure Report Patient Data Patient Demographics Procedure consent was obtained First Name: JAIR Gender: Female Last Name: ONESIMO : 1960 [facility] Initial: JEFF Age: 58 year(s) Patient #: [id number] Race: Unknown Additional ID: [id number] Contact details Address: [address] [place] [address] [place] State: [place] City: [facility] Zip code: [address] Past Medical History Allergies Allergen Reaction Date Comments Reported Erythromycin Other 12/01/2018 Admission Admission Data Admission Date: 01/16/2019 Admission Time: 5:43 Height (in.): 61 BSA: 1.38 (m2) Height (cm.): 154.94 BMI: 18.14 (kg/m2) Weight (lbs.): 96 Weight (kg.): 43.54 Procedure Procedure Types Cath Procedure Peripheral Cath Diagnostic Procedure Sales Agent Insurance Peripheral Procedures Nephro Perc Neph Uret Cath Procedure Description Procedure Date Procedure Date: 01/16/2019 Procedure Start Time: 8:41 Procedure Staff Name Function Mode Grace MD Performing Physician Yaneth Hernandez RT Hands Assembler Gloria Fitch RN Nurse Jerrell Price RT Scrub Procedure Data Cath Procedure Fluoroscopy Diagnostic fluoroscopy Total fluoroscopy Time: 0 time: 0 min min Diagnostic fluoroscopy Total fluoroscopy dose: 44 dose: 44 mGy mGy Contrast Material Contrast Material Type Amount (ml) Isovue 300 12 Procedure Medications Medication Administration Route Dosage Heparin Flush Bag added to field 1 bags (1000units/500ml NS) Lidocaine 1% added to field 20 unlisted medication 1 Fentanyl I.V. 50 mcg Versed I.V. 1 mg Hemodynamics Rest BSA: 1.38 (m2) O2 Consumption: Estimated: 128.56 (ml/min) O2 Consumption indexed : Estimated:93.16 (ml/min/m) Heart Rate: 64 (bpm) Snapshots Pre Cath Intra NCS Post Cath Vital Signs Time Heart Resp SPO2 etCO2 NIBP (mmHg) Rhythm Pain Sedation Rate (ipm) (%) (mmHg) Status Level (bpm) 8:27:50 60 15 0 158/88(122) NSR 0 (11) 10(A) , No pain 8:32:49 56 14 26.6 Measuring NSR 0 (11) 10(A) , No pain 8:33:09 65 15 95 35.8 165/85(96) NSR 0 (11) 10(A) , No pain 8:37:23 57 18 19.8 152/68(92) NSR 0 (11) 10(A) , No pain 8:41:46 67 16 97 29.7 170/62(91) NSR 0 (11) 9(A) , No pain 8:46:12 55 16 99 25.1 151/67(91) NSR 0 (11) 8(A) , No pain 8:51:11 60 17 100 16.7 Measuring NSR 0 (11) 8(A) , No pain 8:51:19 55 15 100 18.3 141/59(95) NSR 0 (11) 8(A) , No pain 8:55:35 60 12 100 16 146/72(94) NSR 0 (11) 8(A) , No pain 8:59:55 64 12 100 19 148/61(88) NSR 0 (11) 8(A) , No pain Medications Time Medication Route Dose Verified Delivered Reason Notes Effec tiveness by by 8:06:54 Heparin Flush added 1 M J Long M J Sanjay used for Bag to bags MD FOX procedure (1000units/500ml field NS) 8:07:15 Lidocaine 1% added 20ml M J Long M J Sanjay for local to vial MD FOX anesthetic field 8:40:08 cefepime iv 1 gm M J Sanjay Castro Per MD Fitch RN physician 8:43:45 Fentanyl I.V. 50 M J Long Gloria for mcg MD Constantine JUNIOR sedation 8:43:54 Versed I.V. 1 mg M J Sanjay Castro for MD Constantine JUNIOR sedation Procedure Log Time Note 7:41:46 Patient Height : 61 inches 7:41:54 Patient Weight : 96 lbs 7:42:29 Use device set IR Diagnostic 7:42:33 Tegaderm 4 x 4 (1626W) opened to sterile field. 7:42:33 Sterile Angiographic Pack opened to sterile field. 7:42:34 Bag Decanter (2002S) opened to sterile field. 8:05:35 Time tracking: Regular hours (M-F 7:00 - 5:00) 8:05:42 Plan of Care:Hemodynamics will remain stable., Cardiac rhythm will remain stable., Comfort level will be maintained., Respiratory function will remain adequate., Patient/ family verbilizes understanding of procedure., Procedure tolerated without complication., Recovers from procedure without complications.. 8:05:49 Patient received from Outpatients to IR Alert and oriented. Tansferred to table in Prone position. 8:05:53 Signed procedure consent form obtained from patient. 8:05:59 H&P Date Dictated: 01/16/2019 Within 30 days and on chart.. 8:06:02 Pre-procedure instructions explained to patient. 8:06:03 Pre-op teaching completed and patient verbalized understanding. 8:06:05 Family in waiting room. 8:06:08 Patient NPO since Midnight. 8:06:21 Is the patient allergic to Iodine/contrast media? No. 8:06:24 Is patient on blood thinner?No 8:06:32 Patient diabetic? Yes. 8:06:54 Heparin Flush Bag (1000units/500ml NS) 1 bags added to field was administered by Mode Grace MD; used for procedure; 8:: 8::09 ----Pre-sedation anethsthesia assessment.---- 8:07:13 Previous problem with sedation/anesthesia? No ? 8:07:15 Lidocaine 1% 20ml vial added to field was administered by Mode Grace MD; for local anesthetic; 8:07:15 Snore? No 8:07:17 Sleep apnea? No 8:07:20 Deviated septum? No 8:07:24 Opens mouth fully? Yes 8:07:26 Sticks out tongue? Yes 8:07:31 Airway obstruction? Yes copd 8:07:37 Dentures? Yes out 8:07:45 IV patent on arrival in left antecubital with D5/.45%NaCl at KVO. 8:08:15 Right Renal was prepped with chlora-prep and draped in sterile fashion. 8:08:22 8:15:21 GLIDE CATHETER 5FR ANGLED 65cm (CG507) opened to sterile field. 8:26:28 ECG and BP/O2 sat monitors applied to patient. 8:26:29 Vital chart was started 8:26:30 Baseline sample Acquired. 8:26:32 Full Disclosure recording started 8:26:33 8:40:08 cefepime 1 gm iv was administered by Gloria Fitch RN; Per physician; 8:40:17 Physician arrived 8:40:18 --------ALL STOP TIME OUT------ 8:40:19 Final Timeout: patient, procedure, and site verified with staff and physician. All members of the team are in agreement. 8:41:22 Procedure started. 8:41:34 Local anesthetic to Right Renal area with Lidocaine 1% by Mode Grace MD.INITIAL ACCESS ONLY 8:43:30 TORQUE DEVICE PLASTIC .038 ( TD01) opened to sterile field. 8:43:45 Fentanyl 50 mcg I.V. was administered by Gloria Fitch RN; for sedation; 8:43:54 Versed 1 mg I.V. was administered by Gloria Fitch RN; for sedation; 8:43:56 GLIDE WIRE ANGLE 180cm (RC2387) opened to sterile field. 8:54:13 Procedure ended.(Physican Out) 8:54:25 Contrast amount:Isovue 300 12ml. 8:54:46 Fluoroscopy time 00.00 minutes. 8:54:53 Fluoroscopy dose: 44 mGy 8:54:53 Flurop Dose total: 44 8:55:00 Procedure and supply charges have been captured, reviewed, submitted and are correct. 8:55:33 Report given to Outpatients. 9:01:49 Vital chart was stopped Device Usage Item Name Manufacture Quantity Catalog Hospital Part Current Minimal Lot# / Number Charge Number Stock Stock Serial# Code Tegaderm 4 x 3M 1 1626W [id number] 4 (1626W) Sterile Cardinal 1 [id number] [id number] 5 Angiographic Health Pack Bag Decanter Microtek 1 2001S [id number] [id number] 5 (2001S) Medical Inc. GLIDE Terumo 1 [id number] 726735 028364 5 CATHETER 5FR ANGLED 65cm (CG507) TORQUE Pisek 1 TD01 [id number] [id number] [id number] 5 DEVICE Scientific PLASTIC .038 ( TD01) GLIDE WIRE Terumo 1 [id number] 858190 727719 012098 5 ANGLE 180cm (QB5640) Signature Audit [place] Stage Time Signature Unsigned Intra-Procedure 01/16/2019 Yaneth Hernandez 9:01:45 AM RT(R) [id number] [place] [address]
[~2019-01-16 05:43] MED LIST changes: +ALBUTEROL2.5 MG/3 M INH; +LEVOTHYROXINE75 MCG PO; +PEPCID AC20 MG PO; +SINGULAIR10 MG PO
--- NOTE | 2019-01-16 20:15 | NUR ---
RECEIVED PT FROM POST OP RECOVERY VIA BED. DROWSY. ORIENTED X4 ACCOMPANIED BY FAMILY. V/S STABLE. RESP SHALLOW. PLACED ON O2 @ 4L/NC DUE TO SAO2 IN 80S. NOW SAO2 98%. RT NEPHROSTOMY BAG TO ROBLES BAG WITH BLOODY DRAINAGE IN TUBING. ROBLES CATH PATENT AND DRAINING PALE YELLOW URINE THAT IS PINKISH TINGED. SALINE LOCK TO LT FOREARM. GEN WEAKNESS NOTED. REPORTS PAIN IN BACK AND REQUESTING PAIN MED. SR ELEVATED X2. CL IN REACH.
--- NOTE | 2019-01-16 20:35 | NUR ---
MEDICATED WITH MORPHINE FOR PAIN ORDERED. FAMILY AT BEDSIDE. CL IN REACH.
--- NOTE | 2019-01-16 22:11 | NUR ---
PM MEDS HELD DUE TO DECREASED B/P AND SEDATION FROM OP AND MORPHINE. FAMILY AT BEDSIDE AGREES.
--- NOTE | 2019-01-16 23:55 | NUR ---
HAS BEEN RESTING WELL. FAMILY AT BEDSIDE. V/S STABLE. NO DISTRESS. CL IN REACH.
[2019-01-17] VITALS: BP 98/55
[2019-01-17 01:00] VITALS: BP 103/53
[2019-01-17 04:00] VITALS: BP 112/71
--- NOTE | 2019-01-17 05:15 | NUR ---
IV RESITED TO LT FOREARM WITH 22G AFTER 1 ATTEMPT. MEDICATED WITH MORPHINE IVP FOR C/O BACK PAIN. FAMILY AT BEDSIDE. V/S STABLE. CL IN REACH.
--- NOTE | 2019-01-17 07:57 | OP ---
PATIENT NAME: JAIR ECHOLS MEDICAL RECORD: [id number] :60 LOCATION:D.MS [facility] ADMISSION DATE:01/16/19 SURGEON: XAVI DE LEON MD DATE OF OPERATION: 01/16/2019 SURGEON: Xavi De Leon MD ANESTHESIA: General anesthesia by Caesar Szymanski CRNA. DIAGNOSIS: Large right renal stones 2.1 cm in the renal pelvis, similar size in the lower pole, noam and about 1.5 cm in the UPJ. FINDINGS: Soft, partly calcified stone in all of these areas. No stones in the ureter. PROCEDURES: Right percutaneous nephrolithotomy and right antegrade ureteroscopy. BLOOD LOSS: None. CLINICAL HISTORY: This is a 58-year-old female, who was admitted to the hospital with severe nausea. She has chronic renal failure for the past 2 years and she has a right AV fistula in the right arm in preparation for dialysis. She was admitted to hospital with C. difficile diarrhea, which has been treated. CT scan of the abdomen and pelvis showed large kidney stones in the right kidney. There were also stones in the ureter at that time. She comes to have right percutaneous nephrolithotomy and antegrade ureteroscopy to get rid of all of her renal stones as well as the ureteral stones in one go. Earlier this morning, she had a conversion of her existing right nephrostomy tube into a nephroureteral catheter. SHE IS ALLERGIC TO ERYTHROMYCIN. She was given Ancef compensation and hris analyst to the OR. DESCRIPTION OF PROCEDURE: The patient was given induction of general anesthesia while in supine position on her stretcher. We then put her in a frogleg position and performed cystoscopy. The distal end of the nephroureteral stent was pulled out of the urethra through using grasping forceps. This allowed the wire that we inserted through the nephroureteral tube to exit the urethra. We can then clamp it to prevent loss of the access tract. She was then turned into the prone position on the Danie frame. She was well padded. She was then prepped and draped. We accessed the nephroureteral catheter with an Amplatz Super Stiff wire. Once the wire exited the urethra, the circulating nurse then placed a hemostat on it. We could then remove the nephroureteral catheter completely. A 1-cm incision was made on either side of the wire using a #15 blade. We then used a dual-lumen catheter to enter the proximal ureter. A second wire was then inserted down into the bladder. This was a Sensor wire. Once the [address], the dual-lumen catheter was removed entirely. The Sensor wire will act as a safety wire and it was clamped to the drapes. We then dilated the tract using the NephroMax balloon dilator. The tract was dilated to 20 atmospheres of pressure for a few seconds and the working sheath was slid down into the UP junction region. We then deflated the balloon and removed the balloon entirely. The nephroscope was then introduced and we immediately saw the stones in the UP junction region. The Syrian LithoClast ultrasonic modality was used to suction up the stone material. The stone material is very soft, almost mucus like with calcification. It suck up very easily with the ultrasonic modality. We did retrieve some to send for stone OPERATIVE REPORT [id number] JAIR ECHOLS analysis. Once the UP junction was cleared up, we then pulled the sheath back and saw the large collection in the lower pole noam. This was also suctioned up very quickly. The stone itself was not very radiodense because of its low degree of calcification and it primarily seems to be proteinaceous mucus material. Once no further stone material could be seen in the kidney, we then switched to the flexible ureteroscope. I looked down the ureter right all the way to the UV junction and no stones were seen. She seems to have passed the ureteral stone. At this point, the procedure was terminated. We pulled the scopes out and placed a 24-Faroese Malecot nephrostomy tube into the kidney through the working sheath. At this point, the wires, the working sheath were all removed. The nephrostomy tube was sutured to the skin using a 2-0 nylon. It was put to bag drainage. Dressings were applied, and the patient was awakened and brought to recovery room. She does have a Quintana catheter in place from the time that we did the cystoscopy. I will keep it in overnight and remove it tomorrow. TRANSINT:[id number] Voice Confirmation ID: [id number] DOCUMENT ID: [id number] XAVI DE LEON MD at 0757 CC: [id number] DICTATION DATE: 01/16/191934 FEED MIXER HELPER: 01/16/192243 ADM IN [facility] [address] [id number]
[2019-01-17 14:03] VITALS: BP 128/56
--- NOTE | 2019-01-17 16:59 | MORECARE ---
CASE MANAGEMENT DISCHARGE SUMMARY PATIENT: JAIR ECHOLS UNIT: [id number] ADM DATE: 01/16/19 AGE: 58 : 60 SEX: F ROOM/BED: D.2223 AUTHOR: ANAND CALLE PHYSICIAN: REFERRING PHYSICIAN: XAVI DE LEON MD DATE OF SERVICE: 01/17/19 Discharge Plan Patient Name: JAIR ECHOLS [facility] [facility] 1960 Planned Disposition: Home Anticipated Discharge Date: 01/18/19 Discharge Date: Expected LOS: 2 Initial Reviewer: [email or web address] Initial Review Date: 01/17/2019 Generated: 01/17/19 5:59 pm DCPIA - Discharge Planning Initial Assessment Updated by [email or web address]: Jennifer Atkinson on 01/17/19 4:57 pm * Is the patient Alert and Oriented? Yes * How many steps to enter\exit or inside your home? 0/0 * PCP Dr. Zhang * Pharmacy [facility] * Preadmission Environment Home with Family * ADLs Independent * Equipment Nebulizer * List name and contact numbers for known caregivers / representatives who currently or will assist patient after discharge: Ford dowd - [phone] * Verbal permission to speak to the caregivers and representatives has been obtained from the patient. Yes * Community resources currently utilized None * Please name any agencies selected above. [facility] - [facility] * Additional services required to return to the preadmission environment? No * Can the patient safely return to the preadmission environment? Yes * Has this patient been hospitalized within the prior 30 days at any hospital? No Patient Name: JAIR ECHOLS Page 03914 at 1659 All edits/amendments must be made on the electronic document DICTATION DATE: 01/17/191658 ASBESTOS CEMENT SHEET SUPERVISOR: ERNIE 01/17/191658 RPT#: [id number] DC DATE: STATUS: ADM IN [facility] [address] [place] [address] END OF REPORT
--- NOTE | 2019-01-17 17:06 | MORECARE ---
CASE MANAGEMENT DISCHARGE SUMMARY PATIENT: JAIR ECHOLS UNIT: [id number] ADM DATE: 01/16/19 AGE: 58 : 60 SEX: F ROOM/BED: D.2223 AUTHOR: ALVA,DOC PHYSICIAN: REFERRING PHYSICIAN: XAVI DE LEON MD DATE OF SERVICE: 01/17/19 Discharge Plan Patient Name: JAIR ECHOLS Facility: [facility]:[place] : 1960 Planned Disposition: Home Anticipated Discharge Date: 01/18/19 Discharge Date: Expected LOS: 2 Initial Reviewer: [email or web address] Initial Review Date: 01/17/2019 Generated: 01/17/19 6:06 pm Comments DCP- Discharge Planning Updated by [email or web address]: Jennifer Atkinson on 01/17/19 4:[address] Patient Name: JAIR ECHOLS Admission Status: Elective Accout number: [id number] Admission Date: 01-16-2019 : 1960 Admission Diagnosis: Attending: TORRES ED LEON Current LOS: 1 Anticipated DC Date: 01-18-2019 Planned Disposition: Home Primary Insurance: NOVASYEARTHNETCR Discharge Planning Comments: CM met with patient to discuss discharge planning/needs, she is alone in the room. States she lives with her . States she is independent with all ADL's and AIDL's. I discussed the availability of rehab, home health and additional DME. She states her plan is to return home with her . Declines home health or DME needs. States she has had meals on wheels in the past and would like to have them again. I called [phone] and left a message with Mervat Richards to return my call. I will f/u again tomorrow if she has not returned my call regarding meals on wheels. CM will continue to follow and assist with discharge planning/needs. Psychologist Educational: Jennifer Atkinson DCPIA - Discharge Planning Initial Assessment Updated by [email or web address]: Jennifer Atkinson on 01/17/19 4:57 pm * Is the patient Alert and Oriented? Yes * How many steps to enter\exit or inside your home? 0/0 * PCP Dr. Zhang * Pharmacy [facility] * Preadmission Environment Home with Family * ADLs Independent * Equipment Nebulizer * List name and contact numbers for known caregivers / representatives who currently or will assist patient after discharge: Ford dowd - [phone] * Verbal permission to speak to the caregivers and representatives has been obtained from the patient. Yes * Community resources currently utilized None * Please name any agencies selected above. [facility] - [facility] * Additional services required to return to the preadmission environment? No * Can the patient safely return to the preadmission environment? Yes * Has this patient been hospitalized within the prior 30 days at any hospital? No Last DP export: 01/17/19 3:59 pm Patient Name: JAIR ECHOLS Page 79739 at 1706 All edits/amendments must be made on the electronic document DICTATION DATE: 01/17/191705 BOX SHOOK PATCHER: ERNIE 01/17/191705 RPT#: [id number] DC DATE: STATUS: ADM IN [facility] [address] [place] [address] END OF REPORT
[2019-01-17 17:59] VITALS: BP 118/61
[2019-01-18 04:00] VITALS: BP 129/69
[2019-01-18 08:48] VITALS: BP 128/76
--- NOTE | 2019-01-18 09:32 | MORECARE ---
CASE MANAGEMENT DISCHARGE SUMMARY PATIENT: JAIR ECHOLS UNIT: [id number] ADM DATE: 01/16/19 AGE: 58 : 60 SEX: F ROOM/BED: D.2223 AUTHOR: ALVADOC PHYSICIAN: REFERRING PHYSICIAN: XAVI DE LEON MD DATE OF SERVICE: 01/18/19 Discharge Plan Patient Name: JAIR ECHOLS Facility: [facility]:[place] : 1960 Planned Disposition: Home Anticipated Discharge Date: 01/18/19 Discharge Date: Expected LOS: 2 Initial Reviewer: [email or web address] Initial Review Date: 01/17/2019 Generated: 01/18/19 10:32 am Comments DCP- Discharge Planning Updated by [email or web address]: Jennifer Atkinson on 01/18/19 8:[address] Received discharge order. Patient is dressed and her mother in law is in the room to take her home. I called [employer] and spoke to Romelia. She states when they are under age 60, even if disabled, she would need to go to [facility] and they have a program called [employer] that she would have to apply for meals on wheels. I gave her the address and number [phone] to call. She declines need for home health or DME. Home with family today. CM will continue to follow and assist with discharge planning/needs. DCP- Discharge Planning Updated by [email or web address]: Jennifer Atkinson on 01/17/19 4:[address] Patient Name: JAIR ECHOLS Admission Status: Elective Accout number: [id number] Admission Date: 01-16-2019 : 1960 Admission Diagnosis: Attending: TORRES DE LEON Current LOS: 1 Anticipated DC Date: 01-18-2019 Planned Disposition: Home Primary Insurance: NOVASYSMCR Discharge Planning Comments: CM met with patient to discuss discharge planning/needs, she is alone in the room. States she lives with her . States she is independent with all ADL's and AIDL's. I discussed the availability of rehab, home health and additional DME. She states her plan is to return home with her . Declines home health or DME needs. States she has had meals on wheels in the past and would like to have them again. I called [phone] and left a message with Mervat Richards to return my call. I will f/u again tomorrow if she has not returned my call regarding meals on wheels. CM will continue to follow and assist with discharge planning/needs. Supervisor Transcribing Operators: Jennifer China DCPIA - Discharge Planning Initial Assessment Updated by [email or web address]: Jennifer China on 01/17/19 4:57 pm * Is the patient Alert and Oriented? Yes * How many steps to enter\exit or inside your home? 0/0 * PCP Dr. Zhang * Pharmacy [facility] * Preadmission Environment Home with Family * ADLs Independent * Equipment Nebulizer * List name and contact numbers for known caregivers / representatives who currently or will assist patient after discharge: Ford dowd - [phone] * Verbal permission to speak to the caregivers and representatives has been obtained from the patient. Yes * Community resources currently utilized None * Please name any agencies selected above. DME - [facility] * Additional services required to return to the preadmission environment? No * Can the patient safely return to the preadmission environment? Yes * Has this patient been hospitalized within the prior 30 days at any hospital? No Last DP export: 01/17/19 4:06 pm Patient Name: JAIR ECHOLS Page 70488 at 0932 All edits/amendments must be made on the electronic document DICTATION DATE: 01/18/19931 DISH TECHNICIAN: ERNIE 01/18/19931 RPT#: [id number] DC DATE: STATUS: ADM IN [facility] [address] [place] [address] END OF REPORT
--- NOTE | 2019-01-18 11:28 | NUR ---
DISCUSSED DISCHARGE INSTRUCTIONS, MEDICATION AND FOLLOW-UP WITH PATIENT. IV REMOVED, TIP INTACT. ALL BELONGINGS SENT WITH PATIENT. DISCHARGED HOME VIA WHEELCHAIR BY MYSELF, ACCOMPANIED BY FAMILY.
--- NOTE | 2019-01-19 17:02 | MORECARE ---
CASE MANAGEMENT DISCHARGE SUMMARY PATIENT: JAIR ECHOLS UNIT: [id number] ADM DATE: 01/16/19 AGE: 58 : 60 SEX: F ROOM/BED: D.2223 AUTHOR: ALVADOC PHYSICIAN: REFERRING PHYSICIAN: XAVI DE LEON MD DATE OF SERVICE: 01/19/19 Discharge Plan Patient Name: JAIR ECHOLS Facility: [facility]:[place] : 1960 Planned Disposition: Home Anticipated Discharge Date: 01/18/19 Discharge Date: 01/18/2019 Expected LOS: 2 Initial Reviewer: [email or web address] Initial Review Date: 01/17/2019 Generated: 01/19/19 6:01 pm Comments DCP- Discharge Planning Updated by [email or web address]: Jennifer Atkinson on 01/18/19 8:[address] Received discharge order. Patient is dressed and her mother in law is in the room to take her home. I called [employer] and spoke to Romelia. She states when they are under age 60, even if disabled, she would need to go to [facility] and they have a program called elder [employer] that she would have to apply for meals on wheels. I gave her the address and number [phone] to call. She declines need for home health or DME. Home with family today. CM will continue to follow and assist with discharge planning/needs. DCP- Discharge Planning Updated by [email or web address]: Jennifer Atkinson on 01/17/19 4:[address] Patient Name: JAIR ECHOLS Admission Status: Elective Accout number: [id number] Admission Date: 01-16-2019 : 1960 Admission Diagnosis: Attending: TORRES DE LEON Current LOS: 1 Anticipated DC Date: 01-18-2019 Planned Disposition: Home Primary Insurance: NOVASYSMCR Discharge Planning Comments: CM met with patient to discuss discharge planning/needs, she is alone in the room. States she lives with her . States she is independent with all ADL's and AIDL's. I discussed the availability of rehab, home health and additional DME. She states her plan is to return home with her . Declines home health or DME needs. States she has had meals on wheels in the past and would like to have them again. I called [phone] and left a message with Mervat Richards to return my call. I will f/u again tomorrow if she has not returned my call regarding meals on wheels. CM will continue to follow and assist with discharge planning/needs. Helper [employer]: Jennifer Atkinson DCPIA - Discharge Planning Initial Assessment Updated by [email or web address]: Jennifer China on 01/17/19 4:57 pm * Is the patient Alert and Oriented? Yes * How many steps to enter\exit or inside your home? 0/0 * PCP Dr. Zhang * Pharmacy [facility] * Preadmission Environment Home with Family * ADLs Independent * Equipment Nebulizer * List name and contact numbers for known caregivers / representatives who currently or will assist patient after discharge: Ford dowd - [phone] * Verbal permission to speak to the caregivers and representatives has been obtained from the patient. Yes * Community resources currently utilized None * Please name any agencies selected above. DME - [facility] * Additional services required to return to the preadmission environment? No * Can the patient safely return to the preadmission environment? Yes * Has this patient been hospitalized within the prior 30 days at any hospital? No Last DP export: 01/18/19 8:32 am Patient Name: JAIR ECHOLS Page [id number] at 1702 All edits/amendments must be made on the electronic document DICTATION DATE: 01/19/191700 TIMBER GRADER: ERNIE 01/19/191700 RPT#: [id number] DC DATE:01/18/19 STATUS: DIS IN [facility] [address] [facility] [place] [address] END OF REPORT
== END 2019-01-18 11:30 | disposition home or self-care (01) | DRG 660 ==
LOC: D.OPS 05:43 → D.PAN 11:30 → D.OPS 11:30 → D.PAN 13:30 → D.MS 19:48 → D.OPS 19:49 → D.MS 01-18 11:30
PROVIDERS: Radiology Vascular & Interventional Radiology; ADMIT Urology; ATTEND Urology
PROC: 0TC Urinary System, Extirpation (ICD-10-PCS; principal; 2019-01-16 08:00)
DX: N20.0 Calculus of kidney (principal); J96.11 Chronic respiratory failure with hypoxia; F31.9 Bipolar disorder, unspecified; I10 Essential (primary) hypertension; K21.9 Gastro-esophageal reflux disease without esophagitis; E03.9 Hypothyroidism, unspecified

== ENCOUNTER → 2019-03-27 08:26 | Outpatient (CLI) | payer OTHER ==
[2019-01-16 23:43] VITALS: BMI 18.1
== END | disposition home or self-care (01) ==
LOC: D.RAD 08:26
PROVIDERS: ATTEND Internal Medicine Pulmonary Disease
DX: J45.909 Unspecified asthma, uncomplicated (principal)

== ENCOUNTER 2019-08-24 08:00 | Outpatient (CLI) | payer OTHER ==
[2019-01-16 23:43] VITALS: BMI 18.1
== END 2019-08-24 23:59 | disposition home or self-care (01) ==
LOC: D.MAMMO 08:00
PROVIDERS: ATTEND Family Medicine
DX: Z12.31 Encounter for screening mammogram for malignant neoplasm of breast (principal)

== ENCOUNTER → 2019-10-05 11:45 | Outpatient (CLI) | payer OTHER ==
[2019-01-16 23:43] VITALS: BMI 18.1
== END | disposition home or self-care (01) ==
LOC: D.MAMMO 10:30 → D.RT 13:00
PROVIDERS: ATTEND Internal Medicine Pulmonary Disease
DX: J44.9 Chronic obstructive pulmonary disease, unspecified (principal); R92.8 Other abnormal and inconclusive findings on diagnostic imaging of breast